=== PATIENT | female | born 1995 | race Hispanic/Latino ===

== ENCOUNTER 2024-05-04 13:43 | Outpatient (CLI) | payer OTHER, SELFPAY ==
--- NOTE | ~2024-05-04 | US_ITS ---
EXAMINATION: US OB follow up DATE: 05/04/2024 15:19 INDICATION: Encounter for normal with prior incomplete anatomy scan. TECHNIQUE: Real-time ultrasound of the pelvis was performed. The interpreting radiologist was not pre sent for the study. COMPARISON: None. Reported prior outside imaging has not been submitted for comparison. FINDINGS: There is a single living fetus is in transverse lie with head to maternal right. The placenta is ant erior and not low-lying. heart rate is 136 beats per minute (bpm). The amniotic fluid index is 14.2 cm, which is normal (5th%-95%: 8.3-24.5 cm at 33 weeks estimated gestational age). The following biometric data were obtained: BPD: 8.7 cm -> 35 weeks 0 days Head circumference: 31.5 cm -> 35 weeks 2 days Abdominal circumference: 30.5 cm -> 34 weeks 3 days Femur length: 6.0 cm -> 31 weeks 1 days The femur length to biparietal diameter, abdominal circumference and head circumference ratios are al l below the normal range.. Head circumference to abdominal circumference ratio: 1.03 (normal range 0.95-1.11). Estimated weight: 2254 g (+/-) 338 g or 5 lbs. 0 oz. (+/-) 12 oz. The following anatomy was identified as normal: Ventricles, choroid plexus, falx and cava septum pellucidum Cerebellum and cisterna magna Nuchal fold Upper lip Nasal bone Four-chamber heart view Stomach Bladder Bilateral lower extremities including the feet IMPRESSION: 1. Single living fetus in transverse lie with heart rate of 136 bpm. 2. Gestational age by ultrasound of 34 weeks 0 day(s) +/- 2 week(s) 3 day(s) with ultrasound estimate d date of delivery (IBRAHIMA) of 06/15/2024. Estimated weight is 38th percentile by Hadlock criteria w hen 06/16/2024 is used as the IBRAHIMA. Please correlate with clinical information or earlier ultrasounds fo r most accurate IBRAHIMA. 3. Normal amniotic fluid index of 14.2 cm. 4. Partial anatomic survey were normal structures identified as detailed above. Reviewed, dictated and finalized at location A. [facility] [employer] ASSISTANT IMPRESSION: 1. Single living fetus in transverse lie with heart rate of 136 bpm. 2. Gestational age by ultrasound of 34 weeks 0 day(s) +/- 2 week(s) 3 day(s) wi th ultrasound estimated date of delivery (IBRAHIMA) of 06/15/2024. Estimated sherman ght is 38th percentile by Hadlock criteria when 06/16/2024 is used as the IBRAHIMA. Pl ease correlate with clinical information or earlier ultrasounds for most accura te IBRAHIMA. 3. Normal amniotic fluid index of 14.2 cm. 4. Partial anatomic survey were normal structures identified as detailed above.
--- OUTSIDE RECORDS SUMMARY | 2024-05-06 01:27 | XMS_ITS | Data Portability ---
Author Organization [facility] Address [address] [place] [address] Assessment Encounter Date Assessment Date Assessment LastModified by Organization Details LastModified Time 12/18/2023 12/18/2023 I personally saw and examined pt w/resident. Documentation was reviewed, and I agree w/resident's note. Dr. Davis [email or web address] Not available 12/21/2023 21:53:58 02/08/2024 02/08/2024 Pt's case was discussed w/resident. Documentation was reviewed, and I agree w/resident's note. Dr. Davis [email or web address] Not available 02/10/2024 13:43:29 03/11/2024 03/11/2024 I personally saw and examined pt w/resident. Documentation was reviewed, and I agree w/resident's note. Dr. Davis [email or web address] Not available 03/14/2024 06:51:20 Plan of Treatment Reminders Order Date Submit Date Provider Last Modified By Organization Details Last Modified Time Details Appointments ANY 30 2024 08:00A Jareth PRIDE MD Not available Not available Not available Lab test, urine 2023 024 [email or web address] In-Office Order, Internal Use Only DO Not Attach Compendium DO Not Attach Compendium, Do Not Delete/merge, [id number] 12/18/2023 16:50:05 panel 2023 024 [facility], [address] [facility], [address], [place], [address], 12/21/2023 10:08:41 varicella zoster virus IgG Ab, QN, IA, serum 2023 024 [facility], [address], [address], [place], [address], 12/21/2023 10:08:44 vaginal pathogens panel, KADY+probe , vaginal fluid 2023 024 [facility] Mcn[facility], [address], [place], [address], 12/21/2023 06:07:42 Hepatitis C IgG Ab, qual, serum 2023 024 michelle Mcnulty, [address], [place], [address], 02/09/2024 16:26:53 HIV 1 + 2, meaningfu l use set 2023 024 michelle Mcnulty, [address], [place], [address], 02/09/2024 16:26:53 RPR (rapid plasma reagin), serum 2023 024 michelle Mcnulty, [address], [place], [address], 02/18/2024 09:02:46 urinalysi s, dipstick 2023 024 [email or web address] In-Office Order, Internal Use Only DO Not Attach Compendium DO Not Attach Compendium, Do Not Delete/merge, [id number] 12/18/2023 17:20:11 culture, urine 2023 024 [facility] Mcnulty, [address], [place], [address], 12/20/2023 06:44:01 urinalysi s, dipstick 10/28/ 2024 10/28/2 024 [email or web address] In-Office Order, Internal Use Only DO Not Attach Compendium DO Not Attach Compendium, Do Not Delete/merge, [id number] 02/09/2024 17:53:35 urinalysi s, dipstick 2023 024 In-Office Order, Internal Use Only DO Not Attach Compendium DO Not Attach Compendium, Do Not Delete/merge, [id number] 03/11/2024 18:56:05 glucose tolerance test, post-50G, 1-hour 2023 024 [facility], [address], [place], [address], 03/22/2024 08:25:12 HIV 1 + 2, meaningfu l use set 2023 024 [facility], [address] [place] [address] [address], [address], [place], [address], 03/22/2024 08:25:15 RPR (rapid plasma reagin), serum 2023 024 [facility], [address] [facility] [address], [place], [address], 03/22/2024 08:25:13 CBC 2023 024 [facility], [address] [facility] [address], [address], [place], [address], 03/22/2024 06:18:30 urinalysi s, dipstick 2023 024 [email or web address] In-Office Order, Internal Use Only DO Not Attach Compendium DO Not Attach Compendium, Do Not Delete/merge, [id number] 04/05/2024 17:07:29 Referral pharmacis t referral 2023 024 [email or web address] Melanie Casiano MD, [address], [place], [address], 01/21/2024 17:04:42 Procedures None recorded. Surgeries None recorded. Imaging US, obstetric , maternal evaluatio n + anatomy - Dating ultrasoun d 2023 024 MECCA Stephanie [facility] (Radiology), [address] [facility] [place], [address], 04/04/2024 08:20:19 Medication Orders 28 mg iron-800 mcg tablet 2023 024 [facility] [place], [address], 12/18/2023 17:08:03 ferrous sulfate 325 mg (65 mg iron) tablet 2023 024 [facility] [address] [place], [address], 04/05/2024 17:08:09 Patient TargetsNo targets recorded. Patient Instructions Encounter Date Encounter Id Patient Instructions Last Modified By Organization Details Last Modified Time 04/05/2024 [id number] Attending Physician Attestation S: 28 yo at 29w0d by LMP c/w 27w US. RF = anemia. O: BP 99/65. FH 29.5, FHR 135. Udip trace protein, trace LE, neg nitrite. A/P: Routine OB care - Given Tdap, flu vaccine. Obtain 3rd tri HIV/RPR at next visit. Anemia - Start iron supplement. Obtain CBC, iron studies, B12/folate at next visit in 2 weeks. {{I did not personally see or examine the patient with the resident. I was physically present to provide indirect supervision through entire encounter. I personally saw the patient with the resident.*}} Plan discussed with resident as documented in my brief note above. Rosalba Glasgow MD [email or web address] Not available 04/07/2024 19:55:47 Reason for Referral Pharmacist Referral for Preg tiffany test positive Referring Physician: Tika Pride, Axle Inspector, Encounter Date: 12/18/2023 Results Created Date Observation Date Name Description Value Unit Range Abnormal Flag Note LastModifiedBy Organization Detail LastModifiedTime 12/18/19 24 12/20/2023 URINE CULTU RE, ROUTI NE urine culture, routine FINAL REPORT Not Available [facility] ([facility]) [address] [place], [address], 12/20/2023 06:44:01 12/18/19 24 12/20/2023 URINE CULTU RE, ROUTI NE result 1 COMMEN T Cultu re shows less than 10,00 0 colon y formi ng units of bacte cesar per rl liter of urine . This colon y count is not gener ally consi dered to be clini jas signi claudia t. Not Available [facility] ([facility]) [address] [place], [address], 12/20/2023 06:44:01 12/18/19 24 12/20/2023 NUSWA B VAGIN ITIS PLUS (VG+) atopobium vaginae HIGH - 2 score abnormal Not Available [facility] ([facility]) [address] [place], [address], 12/21/2023 06:07:42 12/18/19 24 12/20/2023 NUA B VAGIN ITIS PLUS (VG+) bvab 2 HIGH - 2 score abnormal Not Available [facility] ([facility]) [address] [place], [address], 12/21/2023 06:07:42 12/18/19 24 12/20/2023 NUSWA B VAGIN ITIS PLUS (VG+) megasphaera 1 HIGH - 2 score abnormal Calcu late total score by addin g the 3 indiv idual bacte rial vagin osis (BV) marke r score s toget her. Total score is inter prete d as follo ws: Total score 0-1: Indic ates the absen ce of BV. Total score 2: Indet ermin ate for BV. Addit ional clini eliza data shoul d be evalu ated to estab jose cruz a diagn osis. Total score 3-6: Indic ates the prese nce of BV. Not Available [facility] ([facility]) [address] [facility], [place], [address], 12/21/2023 06:07:42 12/18/19 24 12/20/2023 NUSWA B VAGIN ITIS PLUS (VG+) nan albicans, KADY NEGATI VE negati ve Not Available [facility] ([facility]) [address] [facility], [place], [address], 12/21/2023 06:07:42 12/18/19 24 12/20/2023 NUSWA B VAGIN ITIS PLUS (VG+) nan glabrata, KADY NEGATI VE negati ve Not Available [facility] ([facility]) [address] [facility], [place], [address], 12/21/2023 06:07:42 12/18/19 24 12/20/2023 NUA B VAGIN ITIS PLUS (VG+) trich vag by KADY NEGATI VE negati ve Not Available [facility] ([facility]) [address] [facility], [place], [address], 12/21/2023 06:07:42 12/18/19 24 12/20/2023 NUA B VAGIN ITIS PLUS (VG+) chlamydia trachomatis, KADY NEGATI VE negati ve Not Available [facility] ([facility]) [address] [facility], [place], [address], 12/21/2023 06:07:42 12/18/19 24 12/20/2023 NUA B VAGIN ITIS PLUS (VG+) neisseria gonorrhoeae, KADY NEGATI VE negati ve Not Available [facility] ([facility]) [address] [facility], [place], [address], 12/21/2023 06:07:42 12/18/19 24 12/19/2023 INTER PRETA TION: interpretati on: Commen t Not infec agnes with HCV unles s early or acute infec tion is suspe cted (whic h may be delay ed in an immun ocomp romis ed indiv idual ), or other evide nce exist s to indic ate HCV infec tion. Not Available [facility] ([facility]) [address] [facility], [place], [address], 12/21/2023 10:08:40 12/18/19 24 12/19/2023 PREGN MICHAEL, INITI AL SCREE N HBsAg screen NEGATI VE negati ve Not Available [facility] ([facility]) [address] [place], [address], 12/21/2023 10:08:41 12/18/19 24 12/19/2023 PREGN MICHAEL, INITI AL SCREE N HCV Ab NON REACTI VE nonrea ctive Not Available [facility] ([facility]) [address] [place], [address], 12/21/2023 10:08:41 12/18/19 24 12/19/2023 PREGN MICHAEL, INITI AL SCREE N RPR NON REACTI VE nonrea ctive Not Available [facility] ([facility]) [address] [place], [address], 12/21/2023 10:08:41 12/18/19 24 12/19/2023 PREGN MICHAEL, INITI AL SCREE N rubella antibodies, IgG <0.90 index immune >0.99 below low normal Non-i mmune <0.90 Equiv ocal 0.90 - 0.99 Immun e >0.99 Not Available [facility] ([facility]) [address] [place], [address], 12/21/2023 10:08:41 12/18/19 24 12/19/2023 PREGN MICHAEL, INITI AL SCREE N HIV Ab/P24 Ag screen NON REACTI VE nonrea ctive HIV-1 /HIV- 2 antib odies and HIV-1 p24 antig en were NOT detec agnes. There is no labor atory evide nce of HIV infec tion. HIV Negat kristopher Not Available [facility] ([facility]) [address] [facility], [place], [address], 12/21/2023 10:08:41 12/18/19 24 12/19/2023 PREGN MICHAEL, INITI AL SCREE N WBC 5.9 x10e3 /uL 3.4-10 .8 Not Available [facility] ([facility]) [address] [facility], [place], [address], 12/21/2023 10:08:41 12/18/19 24 12/19/2023 PREGN MICHAEL, INITI AL SCREE N RBC 4.04 x10e6 /uL 3.77-5 .28 Not Available [facility] ([facility]) [address] [facility], [place], [address], 12/21/2023 10:08:41 12/18/19 24 12/19/2023 PREGN MICHAEL, INITI AL SCREE N hemoglobin 11.6 g/dL 11.1-1 5.9 Not Available [facility] ([facility]) [address] [facility], [place], [address], 12/21/2023 10:08:41 12/18/19 24 12/19/2023 PREGN MICHAEL, INITI AL SCREE N hematocrit 35.0 % 34.0-4 6.6 Not Available [facility] ([facility]) [address] [facility], [place], [address], 12/21/2023 10:08:41 12/18/19 24 12/19/2023 PREGN MICHAEL, INITI AL SCREE N MCV 87 fL 79-97 Not Available [facility] ([facility]) [address] [facility], [place], [address], 12/21/2023 10:08:41 12/18/19 24 12/19/2023 PREGN MICHAEL, INITI AL SCREE N MCH 28.7 pg 26.6-3 3.0 Not Available [facility] ([facility]) [address], [place], [address], 12/21/2023 10:08:41 12/18/19 24 12/19/2023 PREGN MICHAEL, INITI AL SCREE N MCHC 33.1 g/dL 31.5-3 5.7 Not Available [facility] ([facility]) [address], [place], [address], 12/21/2023 10:08:41 12/18/19 24 12/19/2023 PREGN MICHAEL, INITI AL SCREE N RDW 13.3 % 11.7-1 5.4 Not Available [facility] ([facility]) [address] [facility], [place], [address], 12/21/2023 10:08:41 12/18/19 24 12/19/2023 PREGN MICHAEL, INITI AL SCREE N platelets 273 x10e3 /uL 150-45 0 Not Available [facility] ([facility]) [address], [place], [address], 12/21/2023 10:08:41 12/18/19 24 12/19/2023 PREGN MICHAEL, INITI AL SCREE N neutrophils 57 % notest ab. Not Available [facility] ([facility]) [address] [facility], [place], [address], 12/21/2023 10:08:41 12/18/19 24 12/19/2023 PREGN MICHAEL, INITI AL SCREE N lymphs 33 % notest ab. Not Available [facility] ([facility]) [address] [facility], [place], [address], 12/21/2023 10:08:41 12/18/19 24 12/19/2023 PREGN MICHAEL, INITI AL SCREE N monocytes 6 % notest ab. Not Available [facility] ([facility]) [address] [facility], [place], [address], 12/21/2023 10:08:41 12/18/19 24 12/19/2023 PREGN MICHAEL, INITI AL SCREE N eos 3 % notest ab. Not Available [facility] ([facility]) [address] [facility], [place], [address], 12/21/2023 10:08:41 12/18/19 24 12/19/2023 PREGN MICHAEL, INITI AL SCREE N basos 1 % notest ab. Not Available [facility] ([facility]) [address] [facility], [place], [address], 12/21/2023 10:08:41 12/18/19 24 12/19/2023 PREGN MICHAEL, INITI AL SCREE N neutrophils (absolute) 3.3 x10e3 /uL 1.4-7. 0 Not Available [facility] ([facility]) [address] [facility], [place], [address], 12/21/2023 10:08:41 12/18/19 24 12/19/2023 PREGN MICHAEL, INITI AL SCREE N lymphs (absolute) 1.9 x10e3 /uL 0.7-3. 1 Not Available [facility] ([facility]) [address] [facility], [place], [address], 12/21/2023 10:08:41 12/18/19 24 12/19/2023 PREGN MICHAEL, INITI AL SCREE N monocytes(ab solute) 0.4 x10e3 /uL 0.1-0. 9 Not Available [facility] ([facility]) [address] [facility], [place], [address], 12/21/2023 10:08:41 12/18/19 24 12/19/2023 PREGN MICHAEL, INITI AL SCREE N eos (absolute) 0.2 x10e3 /uL 0.0-0. 4 Not Available [facility] ([facility]) [address] [facility], [place], [address], 12/21/2023 10:08:41 12/18/19 24 12/19/2023 PREGN MICHAEL, INITI AL SCREE N baso (absolute) 0.1 x10e3 /uL 0.0-0. 2 Not Available [facility] ([facility]) [address] [facility], [place], [address], 12/21/2023 10:08:41 12/18/19 24 12/19/2023 PREGN MICHAEL, INITI AL SCREE N immature granulocytes 0 % notest ab. Not Available [facility] ([facility]) [address] [facility], [place], [address], 12/21/2023 10:08:41 12/18/19 24 12/19/2023 PREGN MICHAEL, INITI AL SCREE N immature grans (abs) 0.0 x10e3 /uL 0.0-0. 1 Not Available [facility] ([facility]) [address] [place], [address], 12/21/2023 10:08:41 12/18/19 24 12/19/2023 PREGN MICHAEL, INITI AL SCREE N specific gravity 1.024 1.005- 1.030 Not Available [facility] ([facility]) [address] [facility], [place], [address], 12/21/2023 10:08:41 12/18/19 24 12/19/2023 PREGN MICHAEL, INITI AL SCREE N pH 6.5 5.0-7. 5 Not Available [facility] ([facility]) [address] [place], [address], 12/21/2023 10:08:41 12/18/19 24 12/19/2023 PREGN MICHAEL, INITI AL SCREE N urine-color YELLOW yellow Not Available [facility] ([facility]) [address] [place], [address], 12/21/2023 10:08:41 12/18/19 24 12/19/2023 PREGN MICHAEL, INITI AL SCREE N appearance CLEAR clear Not Available [facility] ([facility]) [address] [facility], [place], [address], 12/21/2023 10:08:41 12/18/19 24 12/19/2023 PREGN MICHAEL, INITI AL SCREE N WBC esterase TRACE negati ve abnormal Not Available [facility] ([facility]) [address] [facility], [place], [address], 12/21/2023 10:08:41 12/18/19 24 12/19/2023 PREGN MICHAEL, INITI AL SCREE N protein NEGATI VE negati ve/tra ce Not Available [facility] ([facility]) [address] [facility], [place], [address], 12/21/2023 10:08:41 12/18/19 24 12/19/2023 PREGN MICHAEL, INITI AL SCREE N glucose NEGATI VE negati ve Not Available [facility] ([facility]) [address] [place], [address], 12/21/2023 10:08:41 12/18/19 24 12/19/2023 PREGN MICHAEL, INITI AL SCREE N ketones NEGATI VE negati ve Not Available [facility] ([facility]) [address] [facility], [place], [address], 12/21/2023 10:08:41 12/18/19 24 12/19/2023 PREGN MICHAEL, INITI AL SCREE N occult blood NEGATI VE negati ve Not Available [facility] ([facility]) [address] [place], [address], 12/21/2023 10:08:41 12/18/19 24 12/19/2023 PREGN MICHAEL, INITI AL SCREE N bilirubin NEGATI VE negati ve Not Available [facility] ([facility]) [address] [place], [address], 12/21/2023 10:08:41 12/18/19 24 12/19/2023 PREGN MICHAEL, INITI AL SCREE N urobilinogen ,semi-qn 1.0 mg/dL 0.2-1. 0 Not Available [facility] ([facility]) [address] [facility], [place], [address], 12/21/2023 10:08:41 12/18/19 24 12/19/2023 PREGN MICHAEL, INITI AL SCREE N nitrite, urine NEGATI VE negati ve Not Available [facility] ([facility]) [address] [facility], [place], [address], 12/21/2023 10:08:41 12/18/19 24 12/19/2023 PREGN MICHAEL, INITI AL SCREE N microscopic examination SEE BELOW: Micro scopi c was indic ated and was perfo rmed. Not Available [facility] ([facility]) [address] [facility], [place], [address], 12/21/2023 10:08:41 12/18/19 24 12/20/2023 PREGN MICHAEL, INITI AL SCREE N chlamydia trachomatis, KADY NEGATI VE negati ve Not Available [facility] ([facility]) [address] [place], [address], 12/21/2023 10:08:41 12/18/19 24 12/20/2023 PREGN MICHAEL, INITI AL SCREE N neisseria gonorrhoeae, KADY NEGATI VE negati ve Not Available [facility] ([facility]) [address] [place], [address], 12/21/2023 10:08:41 12/18/19 24 12/20/2023 PREGN MICHAEL, INITI AL SCREE N urine culture,pren atal, w/gbs FINAL REPORT Not Available [facility] ([facility]) [address] [place], [address], 12/21/2023 10:08:41 12/18/19 24 12/21/2023 PREGN MICHAEL, INITI AL SCREE N ABO grouping O Not Available [facility] ([facility]) [address] [facility], [place], [address], 12/21/2023 10:08:41 12/18/19 24 12/21/2023 PREGN MICHAEL, INITI AL SCREE N Rh factor POSITI VE Pleas e note: Prior recor ds for this patie nt's ABO / Rh type are not avail able for addit ional verif icati on. Not Available [facility] ([facility]) [address] [facility], [place], [address], 12/21/2023 10:08:41 12/18/19 24 12/21/2023 PREGN MICHAEL, INITI AL SCREE N antibody screen NEGATI VE negati ve Not Available [facility] ([facility]) [address] [facility], [place], [address], 12/21/2023 10:08:41 12/18/19 24 12/19/2023 MICRO SCOPI C EXAMI NATIO N WBC 6-10 /hpf 0-5 abnormal Not Available [facility] ([facility]) [address] [facility], [place], [address], 12/21/2023 10:08:42 12/18/19 24 12/19/2023 MICRO SCOPI C EXAMI NATIO N RBC None seen /hpf 0-2 Not Available [facility] ([facility]) [address] [facility], [place], [address], 12/21/2023 10:08:42 12/18/19 24 12/19/2023 MICRO SCOPI C EXAMI NATIO N epithelial cells (non renal) 0-10 /hpf 0-10 Not Available [facility] ([facility]) [address] [facility], [place], [address], 12/21/2023 10:08:42 12/18/19 24 12/19/2023 MICRO SCOPI C EXAMI NATIO N casts None seen /lpf nonese en Not Available [facility] ([facility]) [address] [facility], [place], [address], 12/21/2023 10:08:42 12/18/19 24 12/19/2023 MICRO SCOPI C EXAMI NATIO N bacteria Few nonese en/few Not Available [facility] ([facility]) [address] [facility], [place], [address], 12/21/2023 10:08:42 12/18/19 24 12/20/2023 RESUL T result 1 Commen t Cultu re shows less than 10,00 0 colon y formi ng units of bacte cesar per rl liter of urine . This colon y count is not gener ally consi dered to be clini jas signi fican t. Not Available [facility] ([facility]) [address] [facility], [place], [address], 12/21/2023 10:08:43 12/18/19 24 12/19/2023 VARIC BILL- ZOSTE R V AB, IGG varicella zoster IgG 306 index immune >165 Negat kristopher <135 Equiv ocal 135 - 165 Posit kristopher >165 A posit kristopher resul t gener ally indic ates expos ure to the patho gen or admin istra tion of speci fic immun oglob ulins , but it is not indic ation of activ e infec tion or stage of disea se. Not Available [facility] ([facility]) [address] [facility], [place], [address], 12/21/2023 10:08:44 12/18/19 24 12/18/2023 urina lysis , dipst ick Leukocytes Trace Not Available In-Offi ce Order Internal Use Only DO Not Attach Compendium DO Not Attach Compendium, Do Not Delete/merge, [id number] 12/18/2023 17:13:21 12/18/19 24 12/18/2023 urina lysis , dipst ick Nitrite negati ve Not Available In-Office Order Internal Use Only DO Not Attach Compendium DO Not Attach Compendium, Do Not Delete/merge, 12/18/2023 17:13:21 12/18/19 24 12/18/2023 urina lysis , dipst ick Urobilinogen .2 Not Available In-Of fice Order Internal Use Only DO Not Attach Compendium DO Not Attach Compendium, Do Not Delete/merge, 12/18/2023 17:13:21 12/18/19 24 12/18/2023 urina lysis , dipst ick Protein Negati ve Not Available In-Office Order Internal Use Only DO Not Attach Compendium DO Not Attach Compendium, Do Not Delete/merge, 12/18/2023 17:13:21 12/18/19 24 12/18/2023 urina lysis , dipst ick pH 6.0 Not Available In-Office Order Internal Use Only DO Not Attach Compendium DO Not Attach Compendium, Do Not Delete/merge, 12/18/2023 17:13:21 12/18/19 24 12/18/2023 urina lysis , dipst ick Blood Negati ve Not Available In-Office Order Internal Use Only DO Not Attach Compendium DO Not Attach Compendium, Do Not Delete/merge, 12/18/2023 17:13:21 12/18/19 24 12/18/2023 urina lysis , dipst ick Specific Garwin 1.025 Not Available In-Off ice Order Internal Use Only DO Not Attach Compendium DO Not Attach Compendium, Do Not Delete/merge, 12/18/2023 17:13:21 12/18/19 24 12/18/2023 urina lysis , dipst ick Ketone Small Not Available In-Office Order Internal Use Only DO Not Attach Compendium DO Not Attach Compendium, Do Not Delete/merge, 12/18/2023 17:13:21 12/18/19 24 12/18/2023 urina lysis , dipst ick Bilirubin Negati ve Not Available In-Office Order Internal Use Only DO Not Attach Compendium DO Not Attach Compendium, Do Not Delete/merge, 12/18/2023 17:13:21 12/18/19 24 12/18/2023 urina lysis , dipst ick Glucose Negati ve Not Available In-Office Order Internal Use Only DO Not Attach Compendium DO Not Attach Compendium, Do Not Delete/merge, [id number] 12/18/2023 17:13:21 12/18/19 24 12/18/2023 urina lysis , dipst ick Appearance Clear Not Available In-Offi ce Order Internal Use Only DO Not Attach Compendium DO Not Attach Compendium, Do Not Delete/merge, [id number] 12/18/2023 17:13:21 12/18/19 24 12/18/2023 urina lysis , dipst ick Color Yellow Not Available In-Office Order Internal Use Only DO Not Attach Compendium DO Not Attach Compendium, Do Not Delete/merge, [id number] 12/18/2023 17:13:21 12/18/19 24 12/18/2023 pregn michael test, urine HCG positi ve Not Available In-Office Order Internal Use Only DO Not Attach Compendium DO Not Attach Compendium, Do Not Delete/merge, [id number] 12/18/2023 15:24:42 02/08/20 24 02/08/2024 urina lysis , dipst ick Leukocytes Small Not Available In-Offi ce Order Internal Use Only DO Not Attach Compendium DO Not Attach Compendium, Do Not Delete/merge, [id number] 02/08/2024 17:10:19 02/08/20 24 02/08/2024 urina lysis , dipst ick Nitrite negati ve Not Available In-Office Order Internal Use Only DO Not Attach Compendium DO Not Attach Compendium, Do Not Delete/merge, [id number] 02/08/2024 17:10:19 02/08/20 24 02/08/2024 urina lysis , dipst ick Urobilinogen .2 Not Available In-Of fice Order Internal Use Only DO Not Attach Compendium DO Not Attach Compendium, Do Not Delete/merge, [id number] 02/08/2024 17:10:19 02/08/20 24 02/08/2024 urina lysis , dipst ick Protein Negati ve Not Available In-Office Order Internal Use Only DO Not Attach Compendium DO Not Attach Compendium, Do Not Delete/merge, [id number] 02/08/2024 17:10:19 02/08/20 24 02/08/2024 urina lysis , dipst ick pH 7.0 Not Available In-Office Order Internal Use Only DO Not Attach Compendium DO Not Attach Compendium, Do Not Delete/merge, [id number] 02/08/2024 17:10:19 02/08/20 24 02/08/2024 urina lysis , dipst ick Blood Negati ve Not Available In-Office Order Internal Use Only DO Not Attach Compendium DO Not Attach Compendium, Do Not Delete/merge, [id number] 02/08/2024 17:10:19 02/08/20 24 02/08/2024 urina lysis , dipst ick Specific Garwin 1.015 Not Available In-Off ice Order Internal Use Only DO Not Attach Compendium DO Not Attach Compendium, Do Not Delete/merge, [id number] 02/08/2024 17:10:19 02/08/20 24 02/08/2024 urina lysis , dipst ick Ketone Negati ve Not Available In-Office Order Internal Use Only DO Not Attach Compendium DO Not Attach Compendium, Do Not Delete/merge, [id number] 02/08/2024 17:10:19 02/08/20 24 02/08/2024 urina lysis , dipst ick Bilirubin Negati ve Not Available In-Office Order Internal Use Only DO Not Attach Compendium DO Not Attach Compendium, Do Not Delete/merge, [id number] 02/08/2024 17:10:19 02/08/20 24 02/08/2024 urina lysis , dipst ick Glucose 100 Not Available In-Office Order Internal Use Only DO Not Attach Compendium DO Not Attach Compendium, Do Not Delete/merge, [id number] 02/08/2024 17:10:19 02/08/20 24 02/08/2024 urina lysis , dipst ick Appearance Clear Not Available In-Offi ce Order Internal Use Only DO Not Attach Compendium DO Not Attach Compendium, Do Not Delete/merge, [id number] 02/08/2024 17:10:19 02/08/20 24 02/08/2024 urina lysis , dipst ick Color Pale Yellow Not Available In-Office Order Internal Use Only DO Not Attach Compendium DO Not Attach Compendium, Do Not Delete/merge, [id number] 02/08/2024 17:10:19 03/11/20 24 03/11/2024 urina lysis , dipst ick Leukocytes Negati ve Not Available In-Office Order Internal Use Only DO Not Attach Compendium DO Not Attach Compendium, Do Not Delete/merge, [id number] 03/11/2024 17:53:53 03/11/20 24 03/11/2024 urina lysis , dipst ick Nitrite negati ve Not Available In-Office Order Internal Use Only DO Not Attach Compendium DO Not Attach Compendium, Do Not Delete/merge, 03/11/2024 17:53:53 03/11/20 24 03/11/2024 urina lysis , dipst ick Urobilinogen 2 Not Available In-Of fice Order Internal Use Only DO Not Attach Compendium DO Not Attach Compendium, Do Not Delete/merge, [id number] 03/11/2024 17:53:53 03/11/20 24 03/11/2024 urina lysis , dipst ick Protein Negati ve Not Available In-Office Order Internal Use Only DO Not Attach Compendium DO Not Attach Compendium, Do Not Delete/merge, 03/11/2024 17:53:53 03/11/20 24 03/11/2024 urina lysis , dipst ick pH 7.0 Not Available In-Office Order Internal Use Only DO Not Attach Compendium DO Not Attach Compendium, Do Not Delete/merge, [id number] 03/11/2024 17:53:53 03/11/20 24 03/11/2024 urina lysis , dipst ick Blood Negati ve Not Available In-Office Order Internal Use Only DO Not Attach Compendium DO Not Attach Compendium, Do Not Delete/merge, [id number] 03/11/2024 17:53:53 03/11/20 24 03/11/2024 urina lysis , dipst ick Specific Garwin 1.030 Not Available In-Off ice Order Internal Use Only DO Not Attach Compendium DO Not Attach Compendium, Do Not Delete/merge, [id number] 03/11/2024 17:53:53 03/11/20 24 03/11/2024 urina lysis , dipst ick Ketone Trace Not Available In-Office Order Internal Use Only DO Not Attach Compendium DO Not Attach Compendium, Do Not Delete/merge, [id number] 03/11/2024 17:53:53 03/11/20 24 03/11/2024 urina lysis , dipst ick Bilirubin Negati ve Not Available In-Office Order Internal Use Only DO Not Attach Compendium DO Not Attach Compendium, Do Not Delete/merge, [id number] 03/11/2024 17:53:53 03/11/20 24 03/11/2024 urina lysis , dipst ick Glucose Negati ve Not Available In-Office Order Internal Use Only DO Not Attach Compendium DO Not Attach Compendium, Do Not Delete/merge, [id number] 03/11/2024 17:53:53 03/21/20 24 03/21/2024 CBC, PLATE LET, NO DIFFE RENTI AL WBC 5.7 x10e3 /uL 3.4-10 .8 Not Available [facility] [address] [place], [address], 03/22/2024 06:18:30 03/21/20 24 03/21/2024 CBC, PLATE LET, NO DIFFE RENTI AL RBC 3.44 x10e6 /uL 3.77-5 .28 below low normal Not Available [facility] [address] [place], [address], 03/22/2024 06:18:30 03/21/20 24 03/21/2024 CBC, PLATE LET, NO DIFFE RENTI AL hemoglobin 9.9 g/dL 11.1-1 5.9 below low normal Not Available [facility] [address] [place], [address], 03/22/2024 06:18:30 03/21/20 24 03/21/2024 CBC, PLATE LET, NO DIFFE RENTI AL hematocrit 31.9 % 34.0-4 6.6 below low normal Not Available [facility] [address] [place], [address], 03/22/2024 06:18:30 03/21/20 24 03/21/2024 CBC, PLATE LET, NO DIFFE RENTI AL MCV 93 fL 79-97 Not Available [facility] [address] [place], [address], 03/22/2024 06:18:30 03/21/20 24 03/21/2024 CBC, PLATE LET, NO DIFFE RENTI AL MCH 28.8 pg 26.6-3 3.0 Not Available [facility] [address] [place], [address], 03/22/2024 06:18:30 03/21/20 24 03/21/2024 CBC, PLATE LET, NO DIFFE RENTI AL MCHC 31.0 g/dL 31.5-3 5.7 below low normal Not Available [facility] [address] [place], [address], 03/22/2024 06:18:30 03/21/20 24 03/21/2024 CBC, PLATE LET, NO DIFFE RENTI AL RDW 14.7 % 11.5-1 4.5 above high normal Not Available [facility] [address] [place], [address], 03/22/2024 06:18:30 03/21/20 24 03/21/2024 CBC, PLATE LET, NO DIFFE RENTI AL platelets 232 x10e3 /uL 150-45 0 Mean Plate let Volum e 14.2 fL 8.9-1 2.7 H Not Available [facility] [address] [place], [address], 03/22/2024 06:18:30 03/21/20 24 03/21/2024 CBC, PLATE LET, NO DIFFE RENTI AL NRBC 0 % 0-0 Not Available [facility] [address] [place], [address], 03/22/2024 06:18:30 03/21/2003/22/2024 GEST. DIABE CAITLYN 1-HR SCREE N gestational diabetes screen 78 mg/dL 70-139 Accor ding to ADA, a gluco se thres hold of >139 mg/dL after 50-gr am load ident ifies appro ximat [place] 80% of women with gesta javed l diabe caitlyn melli tus, while the sensi tivit y is furth er incre ased to appro ximat [place] 90% by a thres hold of >129 mg/dL . Not Available [facility] ([facility]) [address] [facility], [place], [address], 03/22/2024 08:25:12 03/21/20 24 03/22/2024 RPR, RFX QN RPR/C ONFIR M TP RPR NON REACTI VE nonrea ctive Not Available [facility] ([facility]) [address] [facility], [place], [address], 03/22/2024 08:25:13 03/21/2003/22/2024 HIV AB/P2 4 AG WITH REFLE X HIV Ab/P24 Ag screen NON REACTI VE nonrea ctive HIV-1 /HIV- 2 antib odies and HIV-1 p24 antig en were NOT detec agnes. There is no labor atory evide nce of HIV infec tion. HIV Negat kristopher Not Available [facility] ([facility]) [address] [facility], [place], [address], 03/22/2024 08:25:15 04/05/20 24 04/05/2024 urina lysis , dipst ick Leukocytes Trace Not Available In-Offi ce Order Internal Use Only DO Not Attach Compendium DO Not Attach Compendium, Do Not Delete/merge, [id number] 04/05/2024 16:28:05 04/05/20 24 04/05/2024 urina lysis , dipst ick Nitrite negati ve Not Available In-Office Order Internal Use Only DO Not Attach Compendium DO Not Attach Compendium, Do Not Delete/merge, [id number] 04/05/2024 16:28:05 04/05/20 24 04/05/2024 urina lysis , dipst ick Urobilinogen 1 Not Available In-Of fice Order Internal Use Only DO Not Attach Compendium DO Not Attach Compendium, Do Not Delete/merge, [id number] 04/05/2024 16:28:05 04/05/20 24 04/05/2024 urina lysis , dipst ick Protein Trace Not Available In-Office Order Internal Use Only DO Not Attach Compendium DO Not Attach Compendium, Do Not Delete/merge, 04/05/2024 16:28:05 04/05/2004/05/2024 urina lysis , dipst ick pH 7.0 Not Available In-Office Order Internal Use Only DO Not Attach Compendium DO Not Attach Compendium, Do Not Delete/merge, 04/05/2024 16:28:05 04/05/20 24 04/05/2024 urina lysis , dipst ick Blood Negati ve Not Available In-Office Order Internal Use Only DO Not Attach Compendium DO Not Attach Compendium, Do Not Delete/merge, 04/05/2024 16:28:05 04/05/20 24 04/05/2024 urina lysis , dipst ick Specific Garwin 1.020 Not Available In-Off ice Order Internal Use Only DO Not Attach Compendium DO Not Attach Compendium, Do Not Delete/merge, 04/05/2024 16:28:05 04/05/20 24 04/05/2024 urina lysis , dipst ick Ketone Trace Not Available In-Office Order Internal Use Only DO Not Attach Compendium DO Not Attach Compendium, Do Not Delete/merge, 04/05/2024 16:28:05 04/05/20 24 04/05/2024 urina lysis , dipst ick Bilirubin Negati ve Not Available In-Office Order Internal Use Only DO Not Attach Compendium DO Not Attach Compendium, Do Not Delete/merge, 04/05/2024 16:28:05 04/05/20 24 04/05/2024 urina lysis , dipst ick Glucose Negati ve Not Available In-Office Order Internal Use Only DO Not Attach Compendium DO Not Attach Compendium, Do Not Delete/merge, [id number] 04/05/2024 16:28:05 04/05/20 24 04/05/2024 urina lysis , dipst ick Appearance Slight ly Cloudy Not Available In-Office Order Internal Use Only DO Not Attach Compendium DO Not Attach Compendium, Do Not Delete/merge, [id number] 04/05/2024 16:28:05 04/05/20 24 04/05/2024 urina lysis , dipst ick Color Yellow Not Available In-Office Order Internal Use Only DO Not Attach Compendium DO Not Attach Compendium, Do Not Delete/merge, [id number] 04/05/2024 16:28:05 04/04/20 24 03/28/2024 US, obste tric, mater nal evalu ation + anato my No observ ation record ed. [address], [place], [address], 04/07/2024 20:58:22 05/04/19 25 05/04/2024 imagi ng/di agnos tic resul t No observ ation record ed. [place] [id number], [place], [address], 05/05/2024 11:06:50 Result Notes None recorded. Problems Name Problem SNOMED Code Status Onset Date Resolution Date Notes Provider Name and Address Organization Details Recorded Time 14239241 Active 2023 TIKA PRIDE MD Attn: Ralph suero,[address] [facility], [place], [address], [facility] 4 15:35:19 Morning sickness 26348921 Active 2023 TIKA PRIDE MD Attn: Ralph suero,[address], [place], [address], [facility] 4 17:22:39 Morning sickness 21732229 Active 2023 TIKA PRIDE MD Attn: Ralph pio,[address], [place], [address], [place] [facility] 4 17:22:39 Headache 06492096 Active 2023 TIKA PRIDE MD Attn: Ralph pio,[address], [place], [address], [place] [facility] 4 17:22:43 Headache 55566699 Active 2023 TIKA PRIDE MD Attn: Ralph suero,[address] [facility], [place], [address], [place] [facility] 4 17:22:43 Bacterial vaginosis in 779525085260 109 Active 2023 TIKA PRIDE MD Attn: Ralph pio,[address] [facility], [place], [address], [place] [facility] 4 18:23:45 Bacterial vaginosis in 207750341291 109 Active 2023 TIKA PRIDE MD Attn: Ralph pio,[address] [facility], [place], [address], [place] [facility] 4 18:23:45 Transvers e lie 45017044 Active 2024 Fetus in transvers e lie with head to maternal right on 05/04/24 TIKA PRIDE MD Attn: Ralph pio,[address] [facility], [place], [address], [place] [facility] 5 11:08:06 Transvers e lie 28759807 Active 2024 Fetus in transvers e lie with head to maternal right on 05/04/24 TIKA PRIDE MD Attn: Ralph pio,[address] [facility], [place], [address], [place] [facility] 5 11:08:06 Problem Notes None recorded. Procedures Surgical History None recorded. Imaging Results Imaging Date Name Status [facility]Modified by [facility] Details LastModified Time 03/28/2024 US, obstetric, maternal evaluation + anatomy completed [address] [facility] [place], [address], 04/07/2024 20:58:22 05/04/2024 imaging/diagnos tic result active [address], [place], [address], 05/05/2024 11:06:50 Procedure Notes None recorded. Medical Equipment None Reported. Allergies No known drug allergies Medications Name Sig Start Date Stop Date Status Note LastModified by Organization Details LastModified Time metronidaz ole 500 mg tablet Take 1 tablet every 12 hours by oral route for 7 days, for Bacteria l Vaginosi s. 03/11 completed pt is done taking this. Not Available Not Available Not Available ferrous sulfate 325 mg (65 mg iron) tablet Take 1 tablet every day by oral route for 30 days. 2023 active Not Available Not Available Not Avai lable 28 mg iron-800 mcg tablet Take 1 tablet every day by oral route as directed for 90 days, for Pregnanc y. 2023 active Not Available Not Available Not Avai lable Vitals Date Recorded Body height Provider Name an d Address Organization Details Last Updated DateTime 12/18/2023 157.48 cm Juliet Berumen MA [facility] 12/18/19 24 15:22:54 Date Recorded Body mass index (BMI) Body weight Provider Name and Address Organization Details Last Updated DateTime 12/18/2023 19.4 kg/m2 61432.49 g Juliet Berumen MA [facility] 12/18/2023 15:22:38 Date Recorded Body temperature Provider Name a nd Address Organization Details Last Updated DateTime 12/18/2023 96.9 [degF] Juliet Berumen MA [facility] 024 15:26:00 Date Recorded Respiratory rate Provider Name a nd Address Organization Details Last Updated DateTime 12/18/2023 16 /min Juliet Berumen MA [facility] 12/18/19 24 15:26:02 Date Recorded Heart rate Provider Name an d Address Organization Details Last Updated DateTime 12/18/2023 87 /min Juliet AlcarazroSILAS [facility] 12/18/19 15:26:14 Date Recorded Body weight Provider Name an d Address Organization Details Last Updated DateTime 02/08/2024 [id number] pio Flores MA [facility] 17:02:29 Date Recorded Body mass index (BMI) Body height Provider Name and Address Organization Details Last Updated DateTime 02/08/2024 20.7 kg/m2 157.48 cm Clarissatheresa Lozanos [facility] 02/08/2024 17:03:44 Date Recorded Heart rate Provider Name an d Address Organization Details Last Updated DateTime 02/08/2024 85 /min Clarissa Flores SIL[facility] 2023 17:03:59 Date Recorded Body temperature Provider Name a nd Address Organization Details Last Updated DateTime 02/08/2024 96.1 [degF] Clarissa Flores MA [facility] 02/08/2024 17:04:03 Date Recorded Respiratory rate Provider Name a nd Address Organization Details Last Updated DateTime 02/08/2024 16 /min Clarissa Flores [facility] 02/08/2024 17:04:20 Date Recorded Oxygen saturation Oxygen saturation in Arterial blood by Pulse oximetry Provider Name and Address Organization Details Last Updated DateTime 02/08/2024 99 % 99 % Clarissa Flores [facility] 02/08/2024 17:04:25 Date Recorded Body height Provider Name an d Address Organization Details Last Updated DateTime 03/11/2024 157.48 cm Marthajose raul Hurley [facility] 03/11/2024 17:25:40 Date Recorded Body mass index (BMI) Body weight Provider Name and Address Organization Details Last Updated DateTime 03/11/2024 22.2 kg/m2 58461.38 g Martha SILAS Hurley [facility] 03/11/2024 17:25:45 Date Recorded Body temperature Provider Name a nd Address Organization Details Last Updated DateTime 03/11/2024 98.1 [degF] Martha Hurley MA [facility] 03/11/2024 17:27:19 Date Recorded Respiratory rate Provider Name a nd Address Organization Details Last Updated DateTime 03/11/2024 16 /min Martha Hurley MA [facility] 03/11/2024 17:27:22 Date Recorded Heart rate Provider Name an d Address Organization Details Last Updated DateTime 03/11/2024 90 /min Martha Hurley MA [facility] 02/12 17:27:31 Date Recorded Oxygen saturation Oxygen saturation in Arterial blood by Pulse oximetry Provider Name and Address Organization Details Last Updated DateTime 03/11/2024 99 % 99 % Martha Hurley [place] Lisbeth CUELLAR 03/11/2024 17:27:35 Date Recorded Body height Provider Name an d Address Organization Details Last Updated DateTime 04/05/2024 157.48 cm Viviana Rodriguez MA [facility] 04/05/2024 15:56:51 Date Recorded Body mass index (BMI) Body weight Provider Name and Address Organization Details Last Updated DateTime 04/05/2024 22.6 kg/m2 69458.01 g Viviana Rodriguez MA [facility] 04/05/2024 16:00:28 Date Recorded Heart rate Provider Name an d Address Organization Details Last Updated DateTime 04/05/2024 108 /min Viviana Rodriguez MA [facility] 03/14 16:00:46 Date Recorded Body temperature Provider Name a nd Address Organization Details Last Updated DateTime 04/05/2024 97.3 [degF] Viviana Rodriguez MA [facility] 04/05/2024 16:00:56 Date Recorded Oxygen saturation Oxygen saturation in Arterial blood by Pulse oximetry Provider Name and Address Organization Details Last Updated DateTime 04/05/2024 99 % 99 % Viviana Rodriguez MA [facility] 04/05/2024 16:01:00 Date Recorded Respiratory rate Provider Name a nd Address Organization Details Last Updated DateTime 04/05/2024 16 /min Viviana Rodriguez MA [facility] 04/05/2024 16:01:03 Date Recorded Systolic blood pressure Diastolic blood pressure Provider Name and Address Organization Details Last Updated DateTime 12/18/2023 101 mm[Hg] 69 mm[Hg] Juliet Berumen MA [facility] 12/18/2023 15:26:10 Date Recorded Systolic blood pressure Diastolic blood pressure Provider Name and Address Organization Details Last Updated DateTime 02/08/2024 102 mm[Hg] 69 mm[Hg] Clarissa Flores MA [facility] 02/08/2024 17:03:02 Date Recorded Systolic blood pressure Diastolic blood pressure Provider Name and Address Organization Details Last Updated DateTime 03/11/2024 97 mm[Hg] 62 mm[Hg] Martha Hurley MA [facility] 03/11/2024 17:27:28 Date Recorded Systolic blood pressure Diastolic blood pressure Provider Name and Address Organization Details Last Updated DateTime 04/05/2024 99 mm[Hg] 65 mm[Hg] Viviana Rodriguez MA [facility] 04/05/2024 16:00:37 Social History Question Answer Notes LastModified by Organizat ion Details LastModified Time Tobacco Smoking Status Never Smoker Juliet Berumen MA null, [facility] 12/18/2023 15:24:37 Do You Have An Advance Directive? No Information n ot available 02/08/2024 What Is Your Level Of Alcohol Consumption? None Information not available 12/18/2023 In The 14 Days Before Symptom Onset, Have You Had Close Contact With A Laboratory-confirm ed COVID-19 While That Case Was Ill? No Information n ot available 02/08/2024 In The 14 Days Before Symptom Onset, Have You Had Close Contact With A Person Who Is Under Investigation For COVID-19 While That Person Was Ill? No Information not available 02/08/2024 Have You Been To An Area Known To Be High Risk For COVID-19? No Information not available 02/08/2024 Are You Currently Employed? Yes Information not available 02/08/2024 What Is Your Occupation? [employer] Information not available 02/08/2024 What Was The Date Of Your Most Recent Tobacco Screening? 03/11/2024 Information not available 03/11/2024 What Is Your Relationship Status? Single Information not available 02/08/2024 Are You Sexually Active? No Information not available 02/08/2024 Do You Have Smoke And Carbon Monoxide Detectors In Your Home? Yes Information not available 02/08/2024 Are You Passively Exposed To Smoke? No Information no t available 02/08/2024 Do You Use Any Illicit Or Recreational Drugs? No Information not available 12/18/2023 Has Tobacco Cessation Counseling Been Provided? No Information not available 12/18/2023 On What Date Was Tobacco Cessation Counseling Provided? 03/11/2024 Information not available 03/11/2024 Do You Or Have You Ever Used Any Other Forms Of Tobacco Or Nicotine? No Information not available 12/18/2023 Sex: Female Functional Status None recorded. Mental Status None recorded. Family History Nothing Reported Notes:Pt. reportes no histor y to report 02/08/24 Medical History No medical history recorded. Gynecological History Statement/Question Response Current Control Method None Date of LMP 09/15/2023 LMP Definite Obstetrics History GPAL:G 4 P 3 0 0 3 Type Value Full Term 3 Induced 0 Premature 0 Living 3 Total 4 Immunizations Vaccine Type Date Status Note Provider Name and Address Organization Details Recorded Time COVID-19, mRNA, LNP-S, bivalent, PF, 50 mcg/0.5 mL or 25mcg/0.25 mL dose 4 cancelled patient objection Kip Davis MD Attn: [address] [place], [address], [place] [facility] 02/10/2024 13:41:55 Tdap 4 completed Babs Thomas RMA [place], [place] [facility] 04/05/2024 17:14:48 Influenza, split virus, trivalent, PF 4 completed Babs Thomas RMA [place], [place] [facility] 04/05/2024 17:14:36 Past Encounters Encounter ID Performer Location Encounter Start Date Encounter Closed Date Diagnosis/Indication Diagnosis SNOMED-CT Code Diagnosis ICD10 Code Diagnosis Note [id number] Kip Davis MD [place] 14 IM [address] [facility] [place] [address] 12/18/2023 15:03:36 12/30/2023 16:02:09 test positive [id number] Z32.01 Riya Armenta is a 28y/o presenting @ 09/15/2023 dated by LMP; here for initial OB exam. Initial US performed 2nd trimester. Preg complicate d by: morning sickness and headaches . She has no significan t concerns today and reports normal antepartum symptoms of . No movement. She denies vaginal bleeding, vaginal discharge, loss of fluid, or contractio ns. She has not had a visit to ED. -FH: unwarrante d -FHR: not heard on doppler - vitals wnl - urine dip abnormal, sending for culture. - anticipato ry guidance provided - initiate PNV - follow-up pending results or in 4 weeks -Will contact patient once results are received. Routine an tenatal care [id number] Z34.82 Morning sickness 5395106 6 O21.9 -Discussed eating small frequent meals.- Keep hydrated, can add flavor to water.-Con diagram clerk sending Zofran if symptoms persist.- will follow-up at next appointmen t. Headache 60630833 R51.9 - Patient is not taking medication .- Reports they are mild.- will follow-up at next appointmen t. [id number] MD Stephanie Hendrix [address] IM [address] [facility] [place] [address] 02/08/2024 16:40:19 02/12/2024 12:37:28 Administration of SARS-CoV-2 mRNA vaccine [id number] Z23 COVID vaccine was offered, patient not interested at this time. We are going to reassess at next visit. Routine an tenatal care [id number] Z34.92 {{ Riya Armenta#}} is a {{ 28#}}y/ o G{{ 4#}}P{ { 3003#}} presenting @ {{ 024#}} dated by {{US LMP* LMP supported by US}}; here for {{initial routine*}} OB exam. Initial US performed {{ 2nd* 3rd}} trimester. Preg complicate d by: morning sickness and headaches . She has no significan t concerns today and reports normal antepartum symptoms of . Noticed movement. She denies vaginal bleeding, vaginal discharge, loss of fluid, or contractio ns. She has not had a visit to ED. Taking PNV. -FH {{wnl erwin uring small erwin uring large}}-FH R {{reassuri ng* non-re assuring}} - vitals {{wnl* abn ormal}}- urine dip {{normal a bnormal*}} small leukocytes . No concern for antibiotic at this time patient is asymptomat ic.- anticipato ry guidance provided- {{continue * initiate }} PNV- follow-up pending results or in {{ 4#}} weeks, for routine care of and pertinent labs. Patient have her anatomic ultrasound order printed and given to her with new location to [facility]. [id number] Kip Davis MD [place] [address] [facility] [address] [place] [address] 03/11/2024 17:11:11 03/15/2024 15:24:17 Routine care [id number] Z34.82 Riya Armenta is a 28y/o presenting @ 25.3 dated by LMP; here for routine OB exam. Initial US not been performed. Preg complicate d by: morning sickness (resolved) and headaches (headaches ) . She has no significan t concerns today and reports normal antepartum symptoms of . Noticed movement. She denies vaginal bleeding, vaginal discharge, loss of fluid, or contractio ns. She has not had a visit to ED. -FH {{wnl* natalie suring small erwin uring large}}-FH R {{reassuri ng* non-re assuring}} - vitals {{wnl* abn ormal}}- urine dip {{normal* abnormal}} - anticipato ry guidance provided- {{continue * initiate }} PNV- follow-up pending results or in {{ 4#}} weeks Patient will come later this week for labs and immunizati on. Bacterial vaginosis in [id number] O23.599 -Positive for BV on 12/18/2023 -Treated with metronidaz ole.-Resol manfred Headache [id number] R51.9 -Resolved. Morning sickness [id number] O21.9 -Resolved Administra tion of influenza vaccine [id number] Z23 [id number] ROSALBA GLASGOW MD [place] [address] [facility] [address] [place] [address] 04/05/2024 15:52:15 04/11/2024 15:42:04 Routine care [id number] Z34.82 Riya Armenta is a 28y/o presenting @ 29 dated by LMP; here for routine OB exam. Initial US not been performed. Preg complicate d by: morning sickness (resolved) and headaches (headaches ) . She has no significan t concerns today and reports normal antepartum symptoms of . Noticed movement. She denies vaginal bleeding, vaginal discharge, loss of fluid, or contractio ns. She has not had a visit to ED. -FH {{wnl* natalie suring small erwin uring large}}-FH R {{reassuri ng* non-re assuring}} - vitals {{wnl* abn ormal}}- urine dip {{normal* abnormal}} - anticipato ry guidance provided- {{continue * initiate }} PNV- follow-up pending results or in {{ 3#}} weeks Today I review lab work and US with patient. CBC show low Hgb 9.9 and Hct 31.9 Plan:- We will prescribe Ferrous sulfate 65 mg for 30 days.- Patient had Tdap and Flu vaccine today- During next visit will repeat CBC. If continue to be low despite iron supplement ation will order Iron panel, Vit B12 and folate.- RSV vaccine was send to pharmacy on 03/11, patient was informed that she need to wait until at least 32-36 weeks to get vaccine.- Patient will need HIV and RPR at 3rd trimester. Headache [id number] R51.9 -Resolved. Morning sickness [id number] O21.9 -Resolved Administra tion of influenza vaccine [id number] Z23 Health Concerns Section Related Observation LastModified by Organization Detai ls LastModified Time None Recorded Concern Status LastModified by Organization Details LastModified Time None Recorded Advance Directives Directive N: Payers Encounter Date Sequence Insurance Name Policy Number Policy Kim Covered Member ID Kim Member ID Guarantor Name 12/18/2023 SLIDING FEE SCHEDULE - DISCOUNT Riya Negro 02/08/2024 2 *SELF PAY* July eckert Negro 02/08/2024 1 [place] [facility] PUBLIC AID Riya Negro [id number] Riya Negro 03/11/2024 1 [place] [facility] Riya Negro [id number] Riya Negro 04/05/2024 1 [place] [facility] Riya Negro [id number] Riya Negro Notes Date Note Type Note Provider Name and Address Organization Details Recorded Time 12/18/2023 text/html {{ Riya Negro Armenta#}} is a {{ 28#}}y/o G{{ 4#}}P{{ 3003#}} presenting @ {{ 09/15/2023#}} dated by {{US LMP* LMP supported by US}}; here for {{initial* routine} } OB exam. Initial US performed {{ 2nd* 3rd}} trimester. Preg complicated by: morning sickness and headaches . She has no significant concerns today and reports normal antepartum symptoms of . No movement. She denies vaginal bleeding, vaginal discharge, loss of fluid, or contractions. She has not had a visit to ED. Not taking PNV. OB plan: {{ Riya Negro#}} y/o G{{ 4#}}P{{ 3003#}} ; IBRAHIMA {{ 06/21/2024#}} based on {{LMP* US LMP supported by dating US}}Pre- Weight: unknown, BMI: {{below normal within normal limits elevated}} Pre-Eclampsia Risk: {{low* moderate hig h}} Risk Level: {{low moderate* hig h}}Continuity Resident:Problem List:-Morning sickness-Headaches Anticipate {{[facility] Delivery* Transfer of care for repeat Transfer of care for TOLAC Transfer of care to higher level facility Co-managem ent with MFM/OB}} INITIAL LABS Date: {{ 12/18/2023#}}Blo od Type: {{A B AB O}} Rh Type: {{positive neg}} Antibody Screen: {{pos neg}}CBC: Hgb {{}} Hct {{}} WBC {{}} Plts {{}}VDRL/RPR: {{non-reactive reac tive}} Hep B: {{negative positive }} HepC: {{reactive non-reac tive}} HIV: {{reactive Non-reac tive}}Vaginal Cultures: GC:{{pos neg}}; Chlamydia:{{pos neg }};Trich: {{pos neg}}Pap: {{UTD Due, recommend PP pending}}Rubella : {{immune non-Immune }} Varicella: {{immune non-Immune }}CF:{{pos neg}} 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}}U rine Dip {{}} Culture: {{normal abnormal}} UDS:{{not indicated pos neg}} Sequential/QUAD/Mat erniT21:{{pos neg}} ; consistent with {{male female unkno wn}} Dating US: LMP: {{}} GA {{}} IBRAHIMA: {{}} Patient is {{sure unsure}} of dating.DUS: Date {{}} AUA: {{}} IBRAHIMA: {{}} Discrepancy {{<5 days <7 days >7days >10days >14days >21days}}E DD: {{}}Based on {{LMP supported by US US}} Anatomy Scan: {{concordant with dates; unremarkable discor dant with dates}} 26 weeks: Date {{}}GTT: {{Pass Fail}}; 3HR GTT {{not warranted pass fail }}CBC: Hgb {{}} Hct {{}} WBC {{}} Plts {{}}HIV:{{reactive non-reactive}} RPR {{reactive non-reac tive}}Tdap:{{given declined}} COVID: {{given declined UT D}} Flu {{given declined no t indicated}} RSV {{given declined}}R hogam: {{unwarranted given }} Date: 36 weeks:Date: {{}}Vaginal Cultures: GC:{{pos neg}}; Chlamydia:{{pos neg }};Trich: {{pos neg}}GBS {{postive negative} }Limited US:{{cephalic breec h transverse}} Situational Awareness:Support Person/Partner/Othe r Parent(s):Siblings: {{ 3#}} Trung Wilkerson, WadePosangelina Baby Name(s):Willing to participate in group visits: {{yes* no}}Home visits ok: {{yes no*}}Ashley yakov Dentist: {{yes no*}} Dental Visit in the last year: {{yes no*}}Regular Exercise Routine: {{yes no*}}Taking vitamin prior to : {{yes no*}}Open to vaccination: Tdap: {{yes* no}} COVID: {{yes no*}} Flu: {{yes* no not indicated}} RSV: {{yes* no}}Consent for urine drug screen: {{yes no}}Hobson : {{postive negative} }PHQ9: {{postive negative} } GAD7: {{positive negative }}ACES: {{1 2 3 4 5+}}Resil ience: {{high low}}Trauma/ PTSD screen {{positive negative }}SDOH:Planning to breastfeed: {{yes* no}} Circumcision {{yes no* undecided }} Epidural {{yes no* undecided }} Post- contraception {{OCP Depo IUD Nexp lanon tubal none*}} Kip Davis MD Attn: [address] [place], [address], [place] [facility] 12/21/2023 21:55:24 02/08/2024 text/html {{ Riya Negro Armenta#}} is a {{ 28#}}y/o G{{ 4#}}P{{ 3003#}} presenting @ {{ 02/08/2024#}} dated by {{US LMP* LMP supported by US}}; here for {{initial routine*} } OB exam. Initial US performed {{ 2nd* 3rd}} trimester. Preg complicated by: morning sickness and headaches . She has no significant concerns today and reports normal antepartum symptoms of . Noticed movement. She denies vaginal bleeding, vaginal discharge, loss of fluid, or contractions. She has not had a visit to ED. Taking PNV. OB plan: {{ Riya Negro#}} y/o G{{ 4#}}P{{ 3003#}} ; IBRAHIMA {{ 06/21/2024#}} based on {{LMP* US LMP supported by dating US}}Pre- Weight: unknown, BMI: {{below normal within normal limits elevated}} Pre-Eclampsia Risk: {{low* moderate hig h}} Risk Level: {{low moderate* hig h}}Continuity Resident:Problem List:-Morning sickness-Headaches Anticipate {{[facility] Delivery* Transfer of care for repeat Transfer of care for TOLAC Transfer of care to higher level facility Co-managem ent with MFM/OB}} INITIAL LABS Date: {{ 12/18/2023#}}Blo od Type: {{A B AB O*}} Rh Type: {{positive* neg}} Antibody Screen: {{pos neg*}}CBC: Hgb {{ 11.6#}} Hct {{ 35#}} WBC {{ 5.9#}} Plts {{ 273#}}VDRL/RPR: {{non-reactive* gloria ctive}} Hep B: {{negative* positiv e}} HepC: {{reactive non-reac tive*}} HIV: {{reactive Non-reac tive*}}Vaginal Cultures: GC:{{pos neg*}}; Chlamydia:{{pos neg *}};Trich: {{pos neg*}}Pap: {{UTD Due, recommend PP pending}}Rubella : {{immune non-Immune *}} Varicella: {{immune* non-Immun e}}CF:{{pos neg}} 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}}U rine Dip {{ Small leukocytes.#}} Culture: {{normal* abnormal} } UDS:{{not indicated pos neg}} Sequential/QUAD/Mat erniT21:{{pos neg}} ; consistent with {{male female unkno wn}} Dating US: LMP: {{}} GA {{}} IBRAHIMA: {{}} Patient is {{sure unsure}} of dating.DUS: Date {{}} AUA: {{}} IBRAHIMA: {{}} Discrepancy {{<5 days <7 days >7days >10days >14days >21days}}E DD: {{}}Based on {{LMP supported by US US}} Anatomy Scan: {{concordant with dates; unremarkable discor dant with dates}} 26 weeks: Date {{}}GTT: {{Pass Fail}}; 3HR GTT {{not warranted pass fail }}CBC: Hgb {{}} Hct {{}} WBC {{}} Plts {{}}HIV:{{reactive non-reactive}} RPR {{reactive non-reac tive}}Tdap:{{given declined}} COVID: {{given declined UT D}} Flu {{given declined no t indicated}} RSV {{given declined}}R hogam: {{unwarranted given }} Date: 36 weeks:Date: {{}}Vaginal Cultures: GC:{{pos neg}}; Chlamydia:{{pos neg }};Trich: {{pos neg}}GBS {{postive negative} }Limited US:{{cephalic breec h transverse}} Situational Awareness:Support Person/Partner/Othe r Parent(s):Siblings: {{ 3#}} Rock, Trung, AngelPossipolina Baby Name(s):Willing to participate in group visits: {{yes* no}}Home visits ok: {{yes no*}}Ashley nagy Dentist: {{yes no*}} Dental Visit in the last year: {{yes no*}}Regular Exercise Routine: {{yes no*}}Taking vitamin prior to : {{yes no*}}Open to vaccination: Tdap: {{yes* no}} COVID: {{yes no*}} Flu: {{yes* no not indicated}} RSV: {{yes* no}}Consent for urine drug screen: {{yes no}}Hobson : {{postive negative} }PHQ9: {{postive negative} } GAD7: {{positive negative }}ACES: {{1 2 3 4 5+}}Resil ience: {{high low}}Trauma/ PTSD screen {{positive negative }}SDOH:Planning to breastfeed: {{yes* no}} Circumcision {{yes no* undecided }} Epidural {{yes no* undecided }} Post- contraception {{OCP Depo IUD Nexp lanon tubal none*}} Kip Davis MD Attn: Accounting[address] , [place], [address], [place] [facility] 02/10/2024 13:43:49 03/11/2024 text/html {{ Riya Negro Armenta#}} is a {{ 28#}}y/o G{{ 4#}}P{{ 3003#}} presenting @ {{ 25.3#}} dated by {{US LMP* LMP supported by US}}; here for {{initial routine*} } OB exam. Initial US not been performed. Preg complicated by: morning sickness (resolved) and headaches (headaches) . She has no significant concerns today and reports normal antepartum symptoms of . Noticed movement. She denies vaginal bleeding, vaginal discharge, loss of fluid, or contractions. She has not had a visit to ED. Taking PNV. OB plan: {{ Riya Negro#}} y/o G{{ 4#}}P{{ 3003#}} ; IBRAHIMA {{ 06/21/2024#}} based on {{LMP* US LMP supported by dating US}}Pre- Weight: unknown, BMI: unknown Pre-Eclampsia Risk: {{low* moderate hig h}} Risk Level: {{low moderate* hig h}}Continuity Resident: Telma List:-Morning sickness (resolved)-Headache s (resolved) Anticipate {{[facility] Delivery* Transfer of care for repeat Transfer of care for TOLAC Transfer of care to higher level facility Co-managem ent with MFM/OB}} INITIAL LABS Date: {{ 12/18/2023#}}Blo od Type: {{A B AB O*}} Rh Type: {{positive* neg}} Antibody Screen: {{pos neg*}}CBC: Hgb {{ 11.6#}} Hct {{ 35#}} WBC {{ 5.9#}} Plts {{ 273#}}VDRL/RPR: {{non-reactive* gloria ctive}} Hep B: {{negative* positiv e}} HepC: {{reactive non-reac tive*}} HIV: {{reactive Non-reac tive*}}Vaginal Cultures: GC:{{pos neg*}}; Chlamydia:{{pos neg *}};Trich: {{pos neg*}}Pap: {{UTD Due, recommend PP* pending}}Rubell a: {{immune non-Immune *}} Varicella: {{immune* non-Immun e}}CF:{{pos neg}} 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}}U rine Dip {{ Small leukocytes.#}} Culture: {{normal* abnormal} } UDS:{{not indicated pos neg}} Sequential/QUAD/Mat erniT21:{{pos neg}} ; consistent with {{male female unkno wn}} Dating US: LMP: {{}} GA {{}} IBRAHIMA: {{}} Patient is {{sure unsure}} of dating.DUS: Date {{}} AUA: {{}} IBRAHIMA: {{}} Discrepancy {{<5 days <7 days >7days >10days >14days >21days}}E DD: {{}}Based on {{LMP supported by US US}} Anatomy Scan: {{concordant with dates; unremarkable discor dant with dates}} 26 weeks: Date {{}}GTT: {{Pass Fail}}; 3HR GTT {{not warranted pass fail }}CBC: Hgb {{}} Hct {{}} WBC {{}} Plts {{}}HIV:{{reactive non-reactive}} RPR {{reactive non-reac tive}}Tdap:{{given declined}} COVID: {{given declined UT D}} Flu {{given declined no t indicated}} RSV {{given declined}}R hogam: {{unwarranted given }} Date: 36 weeks:Date: {{}}Vaginal Cultures: GC:{{pos neg}}; Chlamydia:{{pos neg }};Trich: {{pos neg}}GBS {{postive negative} }Limited US:{{cephalic breec h transverse}} Situational Awareness:Support Person/Partner/Othe r Parent(s):Siblings: {{ 3#}} Trung Wilkerson, Liberty Baby Name(s):Willing to participate in group visits: {{yes* no}}Home visits ok: {{yes no*}}Ashley yakov Dentist: {{yes no*}} Dental Visit in the last year: {{yes no*}}Regular Exercise Routine: {{yes no*}}Taking vitamin prior to : {{yes no*}}Open to vaccination: Tdap: {{yes* no}} COVID: {{yes no*}} Flu: {{yes* no not indicated}} RSV: {{yes* no}}Consent for urine drug screen: {{yes no}}Hobson : {{postive negative} }PHQ9: {{postive negative} } GAD7: {{positive negative }}ACES: {{1 2 3 4 5+}}Resil ience: {{high low}}Trauma/ PTSD screen {{positive negative }}SDOH:Planning to breastfeed: {{yes* no}} Circumcision {{yes no* undecided }} Epidural {{yes no* undecided }} Post- contraception {{OCP Depo IUD Nexp lanon tubal none*}} Kpi Davis MD Attn: [address] [place], [address], [facility] 03/14/2024 06:51:36 04/05/2024 text/html {{ Riya Negro Armenta#}} is a {{ 28#}}y/o G{{ 4#}}P{{ 3003#}} presenting @ {{ 29.0#}} dated by {{US LMP* LMP supported by US}}; here for {{initial routine*} } OB exam. Initial US not been performed. Preg complicated by: morning sickness (resolved) and headaches (headaches) . She has no significant concerns today and reports normal antepartum symptoms of . Noticed movement. She denies vaginal bleeding, vaginal discharge, loss of fluid, or contractions. She has not had a visit to ED. Taking PNV. OB plan: {{ Riya Negro#}} y/o G{{ 4#}}P{{ 3003#}} ; IBRAHIMA {{ 06/21/2024#}} based on {{LMP* US LMP supported by dating US}}Pre- Weight: unknown, BMI: unknown Pre-Eclampsia Risk: {{low* moderate hig h}} Risk Level: {{low moderate* hig h}}Continuity Resident: Telma List:-Morning sickness (resolved)-Headache s (resolved) Anticipate {{[facility] Delivery* Transfer of care for repeat Transfer of care for TOLAC Transfer of care to higher level facility Co-managem ent with MFM/OB}} INITIAL LABS Date: {{ 12/18/2023#}}Blo od Type: {{A B AB O*}} Rh Type: {{positive* neg}} Antibody Screen: {{pos neg*}}CBC: Hgb {{ 11.6#}} Hct {{ 35#}} WBC {{ 5.9#}} Plts {{ 273#}}VDRL/RPR: {{non-reactive* gloria ctive}} Hep B: {{negative* positiv e}} HepC: {{reactive non-reac tive*}} HIV: {{reactive Non-reac tive*}}Vaginal Cultures: GC:{{pos neg*}}; Chlamydia:{{pos neg *}};Trich: {{pos neg*}}Pap: {{UTD Due, recommend PP* pending}}Rubell a: {{immune non-Immune *}} Varicella: {{immune* non-Immun e}}CF:{{pos neg}} 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}}U rine Dip {{ Small leukocytes.#}} Culture: {{normal* abnormal} } UDS:{{not indicated pos neg}} Sequential/QUAD/Mat erniT21:{{pos neg}} ; consistent with {{male female unkno wn}} Dating US: LMP: {{}} GA {{}} IBRAHIMA: {{}} Patient is {{sure unsure}} of dating.DUS: Date {{}} AUA: {{}} IBRAHIMA: {{}} Discrepancy {{<5 days <7 days >7days >10days >14days >21days}}E DD: {{}}Based on {{LMP supported by US US}} Anatomy Scan: {{concordant with dates; unremarkable discor dant with dates discordant with dates by 5 days #}} 26 weeks: Date {{ 03/11/24#}}GTT: {{Pass* Fail}}; 3HR GTT {{not warranted pass fail }}CBC: Hgb {{ 9.9#}} Hct {{ 31.9#}} WBC {{ 5.7#}} Plts {{ 232#}}HIV:{{reac tive non-reactive*} } RPR {{reactive non-reac tive*}}Tdap:{{given * declined}} COVID: {{given declined UT D}} Flu {{given* declined n ot indicated}} RSV {{given declined}}R hogam: {{unwarranted* give n}} Date: 36 weeks:Date: {{}}Vaginal Cultures: GC:{{pos neg}}; Chlamydia:{{pos neg }};Trich: {{pos neg}}GBS {{postive negative} }Limited US:{{cephalic breec h transverse}} Situational Awareness:Support Person/Partner/Othe r Parent(s):Siblings: {{ 3#}} Rock, Trung, AngelPossible Baby Name(s):Willing to participate in group visits: {{yes* no}}Home visits ok: {{yes no*}}Ashley nagy Dentist: {{yes no*}} Dental Visit in the last year: {{yes no*}}Regular Exercise Routine: {{yes no*}}Taking vitamin prior to : {{yes no*}}Open to vaccination: Tdap: {{yes* no}} COVID: {{yes no*}} Flu: {{yes* no not indicated}} RSV: {{yes* no}}Consent for urine drug screen: {{yes no}}Hobson : {{postive negative} }PHQ9: {{postive negative} } GAD7: {{positive negative }}ACES: {{1 2 3 4 5+}}Resil ience: {{high low}}Trauma/ PTSD screen {{positive negative }}SDOH:Planning to breastfeed: {{yes* no}} Circumcision {{yes no* undecided }} Epidural {{yes no* undecided }} Post- contraception {{OCP Depo IUD Nexp lanon tubal none*}} ROSALBA GLASGOW MD Attn: Accounting[address] [place], [address], [facility] 04/07/2024 20:07:37 OBGyn Episode Ob Episode Information Episode Created Date Number of Fetuses Patient Bloodtype Patient rh Status Prepregnancy Weight lbs Domestic Partner Domestic Partner Phone Father Name Area Field Person Status 12/18/19 24 1 O Positive OPEN Fetus Data First Name Last Name Admitted to NICU Weight (g) Sex Living Outcome Pediatric Complications Fetus ID Race Codes Race Delivery Type [id number] Problems Problem Notes Problem Name Start Date End Date Resolution Snomed Code Not e Transverse lie 05/04/2024 [id number] Fetu s in transverse lie with head to maternal right on 05/04/24 US Morning sickness 12/18/2023 [id number] Bacterial vaginosis in 12/21/2023 [id number] Headache 12/18/2023 [id number] Ibrahima Calculation Initial Ibrahiam Date Initial Exam Date Initial Exam Provider Initial Ultrasound Date Last Menstrual Period Date Ultra Sound Weeks Gestation 06/21/2024 12/18/2023 [email or web address] 03/28/2024 09/15/2023 28 Eighteen To Twenty Week Ibrahima Update Ultra Sound Date Fundal Height At Umbil Quickening Date Ultra Sound Latest Weeks Gestation Final Ibrahima Confirmed By Final Ibrahima Confirmed Date Final Ibrahima Date Ultra Sound Latest Days Gestation 0 [email or web address] 04/05/2024 06/22/19 25 0 Pre-zayda Flowsheet Flowsheet Date 12/18/2023 Stone Score Blood Edema Fundus Height Fundus Units Glucose Ketones Leukocytes Nitrite Labor Signs Protein Cervic Dilation Cervic Effacement Cervic Station none none small none neg Type Weight in lbs Pre/Post Dialysis Refused With clothes 106.830056461642 BP Diastolic BP Location Tested BP Systolic BP Type 69 R arm 101 sitting Fetus Heart Rate Present Fetus Movement A No Comments Riya Armenta is a 28y/o presenting @ 09/15/2023 dated by LMP; here for initial OB exam. Initial US performed 2nd trimester. Preg complicated by: morning sickness and headaches . She has no significant concerns today and reports normal antepartum symptoms of . No movement. She denies vaginal bleeding, vaginal discharge, loss of fluid, or contractions. She has not had a visit to ED.Plan:-Initial US daiting-Initial screen including RPR, HIV, HCV - Urine culture due to trace WBC-Nuswab +-Start PNV-Follow up in 4 weeks Flowsheet Date 02/08/2024 Stone Score Blood Edema Fundus Height Fundus Units Glucose Ketones Leukocytes Nitrite Labor Signs Protein Cervic Dilation Cervic Effacement Cervic Station neg none 1+ negative none neg Type Weight in lbs Pre/Post Dialysis Refused With clothes 113.426045037818 BP Diastolic BP Location Tested BP Systolic BP Type 69 L arm 102 sitting Fetus Heart Rate Present A 147 Present Fetus Movement A Yes Comments Flowsheet Date 03/11/2024 Stone Score Blood Edema Fundus Height Fundus Units Glucose Ketones Leukocytes Nitrite Labor Signs Protein Cervic Dilation Cervic Effacement Cervic Station neg none 24.5 cm none trace none neg Type Weight in lbs Pre/Post Dialysis Refused With clothes 121.512916789670 BP Diastolic BP Location Tested BP Systolic BP Type 62 R arm 97 sitting Fetus Heart Rate Present A 150 Fetus Movement A Yes Comments Riya Armenta is a 28y/o presenting @ 25.3 dated by LMP; here for routine OB exam. Initial US not been performed. Preg complicated by: morning sickness (resolved) and headaches (headaches) . She has no significant concerns today and reports normal antepartum symptoms of . Noticed movement. She denies vaginal bleeding, vaginal discharge, loss of fluid, or contractions. She has not had a visit to ED.Plan:-26weeks labs & immunizations Flowsheet Date 04/05/2024 Stone Score Blood Edema Fundus Height Fundus Units Glucose Ketones Leukocytes Nitrite Labor Signs Protein Cervic Dilation Cervic Effacement Cervic Station neg none 29.5 cm none trace none trace Type Weight in lbs Pre/Post Dialysis Refused With clothes 123.130128120540 BP Diastolic BP Location Tested BP Systolic BP Type 65 R arm 99 sitting Fetus Heart Rate Present A 135 Present Fetus Movement A Yes Comments Anatomic US- Baby is growing and gaining weight. Due to gestational age and position the following structured profile, intracranial anatomy, placenta cord insertion and lower extremities are not clearly seen. EFW at 68% Menstrual History Last Menstrual Date Menses Monthly On Bcp Conception Prior Menses Frequency Hcg Plus Date Menarche Onset Age 0609/15/2023 Delivery Information Delivery Date Delivery Type Labor Anesthesia Weeks Gestation Incision Type Labor Labor Length Hrs Delivered By Post Complications Tubal Sterilization Discharge Date Comments Discharge Information Feeding Method Contraceptive Method Maternal HG B and HCT Levels
--- OUTSIDE RECORDS SUMMARY | 2024-05-06 01:27 | XMS_ITS | Clinical Summary ---
Author Organization [facility] Address [address] [place] [address] Care Team Providers Care Customer Care Representative Name Role Phone Unavailable Primary Care Provider Unavailabl e Encounters Date Type Department Care Team Description 04/08/2024 Transcribe Orders [facility] Scheduling [address] [place] [address] Tika Gonzales MD care, subsequent , second trimester (Primary Dx) from Last 3 Months Social History Tobacco Use Types Packs/Day Years Used Date Smoking Tobacco: Never Assessed Comments Unknown Sex and Gender Information Value Date Recorded Sex Assigned at Not on file 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[employer] Gender Identity Not on file Sexual Orientation Not on file Plan of Treatment Health Maintenance Due Date Last Done Comments Hepatitis C Virus (HCV) Screening 1996 TdaP Immunization 1996 Hepatitis B Immunization (1 of 3 - 19+ 3-dose series) 11/13/2015 Pap Smear 2017 Influenza Immunization (#1) 2023 SARS-COV-2 Immunization ( season) 2023 Respiratory Syncytial Virus (RSV) Immunization (Adult) (1 - 1-dose 75+ series) 11/13/2071 Meningococcal Immunization (ACWY) Aged Out No longer eligible based on patient's age to complete this topic Pneumococcal Immunization Combined Aged Out No longer eligible based on patient's age to complete this topic Rotavirus Immunization Aged Out No lo nger eligible based on patient's age to complete this topic
== END 2024-05-04 13:44 | disposition home or self-care (01) ==
DX: Z34.83 Encounter for supervision of other normal pregnancy, third trimester (principal); Z3A.34 34 weeks gestation of pregnancy
CPT/HCPCS: 76816